=== PATIENT | female | born 1935 | race Caucasian/White ===

== ENCOUNTER 2023-07-18 18:07 | Inpatient (IN) | payer OTHER, MEDICAID ==
[~2023-07-18] VITALS: Ht 162.6 cm; Wt 44.0 kg
[2023-07-18 18:16] VITALS: BP 110/64; PULSE 117; RESP 16; TEMP 96.6; O2SAT 96
[2023-07-18] MEDS ORDERED: cefTRIAXone 1,000 MG in DEXT 5% MINI-BAG PLUS 50 ML IV ONE (18:35)
[2023-07-18] MEDS ORDERED: NACL 0.9% 1,500 ML IV SCH (18:35)
[2023-07-18 19:10] LABS: BASOPHILS # (AUTO) 0.1 K/uL (0.00-0.22); BASOPHILS % (AUTO) 0.6 % (0.0-2.0); EOSINOPHILS # (AUTO) 0.2 K/uL (0-0.4); EOSINOPHILS % (AUTO) 1.9 % (0.0-4.0); HEMATOCRIT 36.5 % (36-48); HEMOGLOBIN 12.1 g/dL (12.0-16.0); LYMPHOCYTES % (AUTO) 15.6 % (20.5-51.1); MEAN CORPUSCULAR HEMOGLOBIN 32 pg (27-31); MEAN CORPUSCULAR HGB CONC 33 g/dL (33-37); MEAN CORPUSCULAR VOLUME 94.8 fL (80-94); MONOCYTES % (AUTO) 8.1 % (1.7-9.3); NEUTROPHILS # (AUTO) 9.5 K/uL (1.8-7.7); NEUTROPHILS % (AUTO) 73.8 % (42.2-75.2); PLATELET COUNT (AUTO) 358 K/uL (140-450); RED BLOOD CELL COUNT(AUTO) 3.84 MIL/uL (4.20-5.40); WHITE BLOOD COUNT (AUTO) 12.8 K/uL (4.8-10.8)
[2023-07-18 19:26] LABS: ALANINE AMINOTRANSFERASE 22 U/L (12-78); ALBUMIN 2.7 g/dL (3.4-5.0); ALKALINE PHOSPHATASE 80 U/L (50-136); ANION GAP 8.7 (8-16); ASPARTATE AMINOTRANSFERASE 22 U/L (15-37); CALCIUM 10.3 mg/dL (8.5-10.1); CARBON DIOXIDE 28.4 mmol/L (21-32); CHLORIDE 102 mmol/L (98-107); CREATININE 0.7 mg/dL (0.6-1.3); GLUCOSE 129 mg/dL (74-106); POTASSIUM 4.1 mmol/L (3.5-5.1); SODIUM SERUM 135 mmol/L (136-145); TOTAL BILIRUBIN 0.3 mg/dL (0.0-1.0); TOTAL PROTEIN, SERUM 6.7 g/dL (6.4-8.2); UREA NITROGEN, BLOOD 32 mg/dL (7-18)
[2023-07-18 19:29] LABS: LACTIC ACID 1.2 mmol/L (0.4-2.0)
[2023-07-18] MEDS ORDERED: cefTRIAXone 1,000 MG VIAL ONE (19:39)
[2023-07-18 21:18] LABS: APPEARANCE,URINE CLEAR (CLEAR); BILIRUBIN,URINE NEGATIVE (NEGATIVE); BLOOD, URINE NEGATIVE (NEGATIVE); COLOR,URINE YELLOW (YELLOW); LEUKOCYTE ESTERASE ,URINE NEGATIVE (NEGATIVE); NITRITE, URINE POSITIVE (NEGATIVE); PROTEIN,URINE NEGATIVE (NEGATIVE); UGLUCOSE NEGATIVE (NEGATIVE); UROBILINOGEN,URINE 0.2 EU/dL (0.2 - 1)
[2023-07-18] MEDS ORDERED: DOCUSATE SODIUM 100 MG GELCAP PO PRN (21:20)
[2023-07-18] MEDS ORDERED: ONDANSETRON 4 MG/2 ML VIAL IM/IVP PRN (21:20)
[2023-07-18] MEDS ORDERED: HYDROcodone/APAP 7.5/325 MG 1 TAB PO PRN (21:20)
[2023-07-18] MEDS ORDERED: ZOLPIDEM 5 MG TAB PO PRN (21:20)
[2023-07-18] MEDS ORDERED: POTASSIUM CHLORIDE 10 MEQ TABER PO PRN (21:20)
[2023-07-18] MEDS ORDERED: guaiFENesin DM 200/20 MG-10 ML 10 ML UDC PO PRN (21:20)
[2023-07-18] MEDS ORDERED: ACETAMINOPHEN 325 MG TAB PO PRN (21:20)
[2023-07-18] MEDS: NACL 0.9% 1,000 ML IV SCH (21:29)
[2023-07-18 22:00] LABS: FLU A ANTIGEN negative (NEGATIVE); FLU B ANTIGEN NEGATIVE (NEGATIVE)
[2023-07-18] MEDS ORDERED: BISA-213 RC (22:28)
[2023-07-18] MEDS ORDERED: SENN-72 PO (22:28)
[2023-07-18] MEDS ORDERED: ALBU3SOL83 IH (22:28)
[2023-07-18] MEDS ORDERED: ASPI-1205 PO (22:28)
[2023-07-18] MEDS ORDERED: TIM.5OS OP (22:28)
[2023-07-18] MEDS ORDERED: ATOR20TA PO (22:28)
[2023-07-18] MEDS ORDERED: MIRABULK PO (22:28)
[2023-07-18] MEDS ORDERED: ACET-10509 PO (22:28)
[2023-07-18] MEDS ORDERED: NA P133N1 RC (22:28)
[2023-07-18] MEDS ORDERED: FLO44 INH (22:28)
[2023-07-18 22:34] VITALS: BP 97/54; PULSE 120; PULSE 99; RESP 18; TEMP 98.1; O2SAT 97
[2023-07-19] VITALS (7 sets, daily range): BP systolic 92–105; BP diastolic 50–56; PULSE 65–92; RESP 16–20; TEMP 97.1–97.6; O2SAT 96–99
[2023-07-19 06:10] LABS: BASOPHILS # (AUTO) 0.1 K/uL (0.00-0.22); BASOPHILS % (AUTO) 0.7 % (0.0-2.0); EOSINOPHILS # (AUTO) 0.4 K/uL (0-0.4); EOSINOPHILS % (AUTO) 3.7 % (0.0-4.0); HEMATOCRIT 30.7 % (36-48); HEMOGLOBIN 10.4 g/dL (12.0-16.0); LYMPHOCYTES # (AUTO) 2.3 K/uL (2.5-16.5); LYMPHOCYTES % (AUTO) 24.1 % (20.5-51.1); MEAN CORPUSCULAR HEMOGLOBIN 32 pg (27-31); MEAN CORPUSCULAR HGB CONC 34 g/dL (33-37); MONOCYTES # (AUTO) 0.7 K/uL (0.8-1.0); MONOCYTES % (AUTO) 6.9 % (1.7-9.3); NEUTROPHILS # (AUTO) 6.3 K/uL (1.8-7.7); NEUTROPHILS % (AUTO) 64.6 % (42.2-75.2); PLATELET COUNT (AUTO) 305 K/uL (140-450); RED BLOOD CELL COUNT(AUTO) 3.23 MIL/uL (4.20-5.40); RED CELL DISTRIBUTION WIDTH 14.4 % (11.6-13.7); WHITE BLOOD COUNT (AUTO) 9.7 K/uL (4.8-10.8)
[2023-07-19 06:21] LABS: ALANINE AMINOTRANSFERASE 17 U/L (12-78); ALBUMIN 2.3 g/dL (3.4-5.0); ALKALINE PHOSPHATASE 67 U/L (50-136); ANION GAP 6.3 (8-16); ASPARTATE AMINOTRANSFERASE 23 U/L (15-37); CALCIUM 9.3 mg/dL (8.5-10.1); CARBON DIOXIDE 28.5 mmol/L (21-32); CHLORIDE 108 mmol/L (98-107); CREATININE 0.5 mg/dL (0.6-1.3); GLUCOSE 96 mg/dL (74-106); POTASSIUM 3.8 mmol/L (3.5-5.1); SODIUM SERUM 139 mmol/L (136-145); TOTAL BILIRUBIN 0.3 mg/dL (0.0-1.0); TOTAL PROTEIN, SERUM 5.5 g/dL (6.4-8.2); UREA NITROGEN, BLOOD 20 mg/dL (7-18)
[2023-07-19] MEDS: PANTOPRAZOLE 40 MG TABEC PO SCH (08:53)
[2023-07-19] MEDS: NACL 0.9% 1,000 ML IV SCH (13:48)
[2023-07-20 04:00] VITALS: BP 101/46; PULSE 55; RESP 18; TEMP 97.4; O2SAT 94
[2023-07-20] MEDS: NACL 0.9% 1,000 ML IV SCH ×2 (06:40→15:34)
[2023-07-20 06:57] LABS: ALANINE AMINOTRANSFERASE 15 U/L (12-78); ALBUMIN 2.3 g/dL (3.4-5.0); ALKALINE PHOSPHATASE 81 U/L (50-136); ANION GAP 11.6 (8-16); ASPARTATE AMINOTRANSFERASE 19 U/L (15-37); CALCIUM 9.4 mg/dL (8.5-10.1); CARBON DIOXIDE 23.7 mmol/L (21-32); CHLORIDE 108 mmol/L (98-107); CREATININE 0.6 mg/dL (0.6-1.3); GLUCOSE 77 mg/dL (74-106); POTASSIUM 3.3 mmol/L (3.5-5.1); SODIUM SERUM 140 mmol/L (136-145); TOTAL BILIRUBIN 0.4 mg/dL (0.0-1.0); TOTAL PROTEIN, SERUM 5.6 g/dL (6.4-8.2); UREA NITROGEN, BLOOD 11 mg/dL (7-18)
[2023-07-20 07:23] LABS: BASOPHILS # (AUTO) 0.1 K/uL (0.00-0.22); BASOPHILS % (AUTO) 0.5 % (0.0-2.0); EOSINOPHILS # (AUTO) 0.3 K/uL (0-0.4); EOSINOPHILS % (AUTO) 2.2 % (0.0-4.0); HEMATOCRIT 29.8 % (36-48); HEMOGLOBIN 9.9 g/dL (12.0-16.0); LYMPHOCYTES # (AUTO) 1.3 K/uL (2.5-16.5); LYMPHOCYTES % (AUTO) 10.7 % (20.5-51.1); MEAN CORPUSCULAR HEMOGLOBIN 32 pg (27-31); MEAN CORPUSCULAR HGB CONC 33 g/dL (33-37); MEAN CORPUSCULAR VOLUME 95.7 fL (80-94); MONOCYTES # (AUTO) 0.5 K/uL (0.8-1.0); MONOCYTES % (AUTO) 4.5 % (1.7-9.3); NEUTROPHILS # (AUTO) 9.9 K/uL (1.8-7.7); NEUTROPHILS % (AUTO) 82.1 % (42.2-75.2); PLATELET COUNT (AUTO) 274 K/uL (140-450); RED BLOOD CELL COUNT(AUTO) 3.11 MIL/uL (4.20-5.40); RED CELL DISTRIBUTION WIDTH 14.1 % (11.6-13.7)
[2023-07-20 08:00] VITALS: PULSE 93; RESP 18; O2SAT 97
[2023-07-20] MEDS: PANTOPRAZOLE 40 MG TABEC PO SCH (09:58)
[2023-07-20] MEDS ORDERED: LORazepam 2 MG/ML VIAL IVP PRN (10:15)
[2023-07-20] MEDS ORDERED: FOAM DRESSING TP PRN (11:15)
[2023-07-20] MEDS ORDERED: Z-GUARD PASTE TP PRN (11:15)
[2023-07-20] MEDS: FOAM DRESSING TP SCH (13:00)
[2023-07-20] MEDS: Z-GUARD PASTE TP SCH (13:00)
[2023-07-20 20:00] VITALS: BP 101/58; PULSE 93; RESP 18; TEMP 98.7; O2SAT 94
[2023-07-21] MEDS: Z-GUARD PASTE TP SCH ×2 (01:46→12:30)
[2023-07-21 04:00] VITALS: BP 97/47; PULSE 76; RESP 16; TEMP 97.1; O2SAT 99
[2023-07-21 06:36] LABS: BASOPHILS # (AUTO) 0.1 K/uL (0.00-0.22); BASOPHILS % (AUTO) 0.8 % (0.0-2.0); EOSINOPHILS # (AUTO) 0.1 K/uL (0-0.4); EOSINOPHILS % (AUTO) 1.9 % (0.0-4.0); HEMATOCRIT 26.5 % (36-48); LYMPHOCYTES # (AUTO) 1.6 K/uL (2.5-16.5); MEAN CORPUSCULAR HEMOGLOBIN 33 pg (27-31); MEAN CORPUSCULAR HGB CONC 34 g/dL (33-37); MEAN CORPUSCULAR VOLUME 95.4 fL (80-94); MONOCYTES # (AUTO) 0.5 K/uL (0.8-1.0); NEUTROPHILS # (AUTO) 4.9 K/uL (1.8-7.7); NEUTROPHILS % (AUTO) 68.3 % (42.2-75.2); PLATELET COUNT (AUTO) 263 K/uL (140-450); RED BLOOD CELL COUNT(AUTO) 2.78 MIL/uL (4.20-5.40); RED CELL DISTRIBUTION WIDTH 14.6 % (11.6-13.7); WHITE BLOOD COUNT (AUTO) 7.1 K/uL (4.8-10.8)
[2023-07-21 06:56] LABS: ALANINE AMINOTRANSFERASE 13 U/L (12-78); ALBUMIN 2.1 g/dL (3.4-5.0); ALKALINE PHOSPHATASE 77 U/L (50-136); ASPARTATE AMINOTRANSFERASE 17 U/L (15-37); CALCIUM 9.4 mg/dL (8.5-10.1); CARBON DIOXIDE 25.5 mmol/L (21-32); CHLORIDE 109 mmol/L (98-107); CREATININE 0.5 mg/dL (0.6-1.3); GLUCOSE 92 mg/dL (74-106); POTASSIUM 3.5 mmol/L (3.5-5.1); SODIUM SERUM 141 mmol/L (136-145); TOTAL BILIRUBIN 0.2 mg/dL (0.0-1.0); TOTAL PROTEIN, SERUM 5.3 g/dL (6.4-8.2); UREA NITROGEN, BLOOD 11 mg/dL (7-18)
[2023-07-21 08:01] VITALS: PULSE 92
[2023-07-21] MEDS: PANTOPRAZOLE 40 MG TABEC PO SCH (08:29)
[2023-07-21 08:52] VITALS: BP 113/64; PULSE 98; RESP 20; TEMP 96.6; O2SAT 97
[2023-07-21 08:53] VITALS: PULSE 98; RESP 20; O2SAT 94
[2023-07-21] MEDS: NACL 0.9% 1,000 ML IV SCH (10:49)
[2023-07-21] MEDS: FOAM DRESSING TP SCH (12:30)
[2023-07-21] MEDS ORDERED: AMOX-999 PO (14:34)
== END 2023-07-21 15:18 | DRG 640 ==
LOC: MED 18:07 → MTU 21:19
PROVIDERS: ADMIT Student in an Organized Health Care Education/Training Program; ATTEND Student in an Organized Health Care Education/Training Program
DX: E86.0 Dehydration (principal); E43 Unspecified severe protein-calorie malnutrition; G82.50 Quadriplegia, unspecified; N39.0 Urinary tract infection, site not specified; R65.10 Systemic inflammatory response syndrome (SIRS) of non-infectious origin without acute organ dysfunction; Z68.1 Body mass index [BMI] 19.9 or less, adult; I10 Essential (primary) hypertension; J45.909 Unspecified asthma, uncomplicated; Z66 Do not resuscitate; Z20.822 Contact with and (suspected) exposure to COVID-19; Z91.018 Allergy to other foods; Z91.09 Other allergy status, other than to drugs and biological substances; Z79.82 Long term (current) use of aspirin; Z79.1 Long term (current) use of non-steroidal anti-inflammatories (NSAID); Z79.899 Other long term (current) drug therapy
CPT/HCPCS: 36415; 71045; 80053; 81003; 83605; 83880; 84484; 85025; 87040; 87081; 87086; 92526; 93005; 96365; 99285; J0696; J7060

== ENCOUNTER 2024-08-08 19:06 | Inpatient (IN) | payer OTHER, MEDICAID ==
[~2024-08-08] VITALS: Ht 157.5 cm; Wt 45.0 kg
[~2024-08-08 19:06] MED LIST: ACET500T99 PO; ALBU3SOL83 IH; AMOX-999 PO; ASPI-1205 PO; ATOR20TA PO; BISA-213 RC; FLUT10.62 INH; MIRABULK PO; NA P133N1 RC; SENN-72 PO; TIM.5OS OP
[2024-08-08 19:20] VITALS: O2SAT 94
[2024-08-08 19:36] VITALS: BP 99/48; PULSE 85; RESP 21; TEMP 98.1; O2SAT 96
[2024-08-08 20:17] LABS: BASOPHILS % (AUTO) 0.4 % (0.0-2.0); EOSINOPHILS # (AUTO) 0.5 K/uL (0-0.4); EOSINOPHILS % (AUTO) 6.3 % (0.0-4.0); HEMATOCRIT 30.9 % (36-48); HEMOGLOBIN 10.3 g/dL (12.0-16.0); LYMPHOCYTES % (AUTO) 26.1 % (20.5-51.1); MEAN CORPUSCULAR HEMOGLOBIN 31 pg (27-31); MEAN CORPUSCULAR HGB CONC 33 g/dL (33-37); MEAN CORPUSCULAR VOLUME 92.5 fL (80-94); MONOCYTES # (AUTO) 0.6 K/uL (0.8-1.0); MONOCYTES % (AUTO) 7.7 % (1.7-9.3); NEUTROPHILS # (AUTO) 4.6 K/uL (1.8-7.7); NEUTROPHILS % (AUTO) 59.5 % (42.2-75.2); PLATELET COUNT (AUTO) 297 K/uL (140-450); RED BLOOD CELL COUNT(AUTO) 3.34 MIL/uL (4.20-5.40); RED CELL DISTRIBUTION WIDTH 14.7 % (11.6-13.7); WHITE BLOOD COUNT (AUTO) 7.8 K/uL (4.8-10.8)
[2024-08-08 20:34] LABS: ANION GAP 6.6 (8-16); CARBON DIOXIDE 30.1 mmol/L (21-32); CHLORIDE 101 mmol/L (98-107); CREATININE 0.7 mg/dL (0.6-1.3); GLUCOSE 92 mg/dL (74-106); POTASSIUM 3.7 mmol/L (3.5-5.1); SODIUM SERUM 134 mmol/L (136-145); UREA NITROGEN, BLOOD 17 mg/dL (7-18)
[2024-08-08 20:37] LABS: ALANINE AMINOTRANSFERASE 16 U/L (12-78); ALKALINE PHOSPHATASE 83 U/L (50-136); ASPARTATE AMINOTRANSFERASE 19 U/L (15-37); BILIRUBIN,DIRECT 0.1 mg/dL (0.0-0.3); TOTAL BILIRUBIN 0.3 mg/dL (0.0-1.0); TOTAL PROTEIN, SERUM 6.8 g/dL (6.4-8.2)
[2024-08-08 21:10] LABS: INR 0.99 (0.8-1.2); PROTHROMBIN TIME 10.4 secs (10.8-13.4)
[2024-08-08 21:12] LABS: BILIRUBIN,URINE NEGATIVE (NEGATIVE); BLOOD, URINE 2+ (NEGATIVE); COLOR,URINE YELLOW (YELLOW); LEUKOCYTE ESTERASE ,URINE 3+ (NEGATIVE); NITRITE, URINE NEGATIVE (NEGATIVE); PROTEIN,URINE 1+ (NEGATIVE); UGLUCOSE NEGATIVE (NEGATIVE); UROBILINOGEN,URINE 0.2 EU/dL (0.2 - 1)
[2024-08-08 21:16] LABS: APPEARANCE,URINE HAZY (CLEAR)
[2024-08-08 21:25] LABS: WBC,URINE >25 (MANY) /HPF (0-5)
[2024-08-08 21:26] LABS: BACTERIA,URINE 4+ /HPF (None Seen); MUCUS,URINE 3+ /LPF (None Seen)
[2024-08-08] MEDS ORDERED: cefTRIAXone 1,000 MG VIAL ONE (21:34)
[2024-08-08] MEDS: NACL 0.9% 1,500 ML IV ONE (21:37)
[2024-08-08 22:08] LABS: LACTIC ACID 0.5 mmol/L (0.4-2.0)
[2024-08-08] MEDS ORDERED: BISA-213 RC (23:31)
[2024-08-08] MEDS ORDERED: ASPI-1822 PO (23:31)
[2024-08-08] MEDS ORDERED: ASCO500T95 PO (23:31)
[2024-08-08] MEDS ORDERED: TRAM50TA3 PO (23:31)
[2024-08-08] MEDS ORDERED: ATRN INH (23:31)
[2024-08-08] MEDS ORDERED: SENN-72 PO (23:31)
[2024-08-08] MEDS ORDERED: FLUT1DSK IH (23:31)
[2024-08-08] MEDS ORDERED: ACET-2619 PO (23:31)
[2024-08-08] MEDS ORDERED: MIRT-121 PO (23:31)
[2024-08-09] VITALS (9 sets, daily range): BP systolic 103–114; BP diastolic 50–73; PULSE 51–99; RESP 14–20; TEMP 97.1–98.5; O2SAT 94–100
[2024-08-09] MEDS: NACL 0.9% 1,000 ML IV ONE (00:58)
[2024-08-09] MEDS ORDERED: SENNA 8.6 MG TAB PO PRN (16:20)
[2024-08-09] MEDS ORDERED: ACETAMINOPHEN EXTRA STRENGTH 500 MG TAB PO PRN (16:20)
[2024-08-09] MEDS ORDERED: SODIUM PHOSPHATE 118 ML ENEM RC SCH (16:20)
[2024-08-09] MEDS: ALBUTEROL 0.083% 2.5 MG/3 ML NEBU INH SCH (18:00)
[2024-08-09] MEDS: BUDESONIDE 0.5 MG/2 ML NEBU INH SCH (19:30)
[2024-08-09] MEDS ORDERED: FLUTICASONE IH SCH (21:00)
[2024-08-09] MEDS: TIMOLOL OP 0.5% 5 ML BTL OP SCH (21:00)
[2024-08-09] MEDS ORDERED: SALMETEROL IH SCH (21:00)
[2024-08-09] MEDS: MIRTAZAPINE 15 MG TAB PO SCH (21:33)
[2024-08-10] VITALS (11 sets, daily range): BP systolic 116–139; BP diastolic 56–78; PULSE 71–90; RESP 16–18; TEMP 97–98.1; O2SAT 93–99
[2024-08-10] MEDS: ALBUTEROL 0.083% 2.5 MG/3 ML NEBU INH SCH (07:42)
[2024-08-10] MEDS: ATORVASTATIN 20 MG TAB PO SCH (08:47)
[2024-08-10] MEDS: ASCORBIC ACID 500 MG TAB PO SCH (08:47)
[2024-08-10] MEDS: ASPIRIN 81 MG TAB.CHEW PO SCH (08:49)
[2024-08-10] MEDS: POLYETHYLENE GLYCOL 17 GM/PKT PO SCH (08:49)
[2024-08-10] MEDS: TIMOLOL OP 0.5% 5 ML BTL BOTH EYES SCH (11:16)
[2024-08-10 13:01] LABS: BASOPHILS # (AUTO) 0.1 K/uL (0.00-0.22); BASOPHILS % (AUTO) 0.9 % (0.0-2.0); EOSINOPHILS # (AUTO) 0.2 K/uL (0-0.4); EOSINOPHILS % (AUTO) 2.6 % (0.0-4.0); HEMATOCRIT 29.4 % (36-48); LYMPHOCYTES # (AUTO) 1.5 K/uL (2.5-16.5); LYMPHOCYTES % (AUTO) 18.7 % (20.5-51.1); MEAN CORPUSCULAR HEMOGLOBIN 31 pg (27-31); MEAN CORPUSCULAR HGB CONC 34 g/dL (33-37); MEAN CORPUSCULAR VOLUME 91.7 fL (80-94); MONOCYTES # (AUTO) 0.5 K/uL (0.8-1.0); MONOCYTES % (AUTO) 6.8 % (1.7-9.3); NEUTROPHILS # (AUTO) 5.5 K/uL (1.8-7.7); PLATELET COUNT (AUTO) 342 K/uL (140-450); RED BLOOD CELL COUNT(AUTO) 3.21 MIL/uL (4.20-5.40); RED CELL DISTRIBUTION WIDTH 14.4 % (11.6-13.7); WHITE BLOOD COUNT (AUTO) 7.8 K/uL (4.8-10.8)
[2024-08-10 13:23] LABS: ALANINE AMINOTRANSFERASE 18 U/L (12-78); ALBUMIN 1.9 g/dL (3.4-5.0); ALKALINE PHOSPHATASE 83 U/L (50-136); ASPARTATE AMINOTRANSFERASE 17 U/L (15-37); CALCIUM 9.3 mg/dL (8.5-10.1); CARBON DIOXIDE 28.4 mmol/L (21-32); CHLORIDE 105 mmol/L (98-107); CREATININE 0.7 mg/dL (0.6-1.3); GLUCOSE 85 mg/dL (74-106); POTASSIUM 3.4 mmol/L (3.5-5.1); SODIUM SERUM 136 mmol/L (136-145); TOTAL BILIRUBIN 0.2 mg/dL (0.0-1.0); TOTAL PROTEIN, SERUM 6.4 g/dL (6.4-8.2); UREA NITROGEN, BLOOD 10 mg/dL (7-18)
[2024-08-10] MEDS: POTASSIUM CHLORIDE 20% 40 MEQ/15 ML UDC PO ONE (17:21)
[2024-08-11] VITALS (12 sets, daily range): BP systolic 104–131; BP diastolic 41–82; PULSE 81–93; RESP 16–18; TEMP 97–97.8; O2SAT 94–98
[2024-08-11 05:26] LABS: BASOPHILS # (AUTO) 0.1 K/uL (0.00-0.22); BASOPHILS % (AUTO) 0.9 % (0.0-2.0); EOSINOPHILS # (AUTO) 0.3 K/uL (0-0.4); EOSINOPHILS % (AUTO) 5.4 % (0.0-4.0); HEMATOCRIT 29.5 % (36-48); HEMOGLOBIN 9.9 g/dL (12.0-16.0); LYMPHOCYTES # (AUTO) 1.7 K/uL (2.5-16.5); LYMPHOCYTES % (AUTO) 26.8 % (20.5-51.1); MEAN CORPUSCULAR HEMOGLOBIN 31 pg (27-31); MEAN CORPUSCULAR HGB CONC 34 g/dL (33-37); MONOCYTES # (AUTO) 0.5 K/uL (0.8-1.0); MONOCYTES % (AUTO) 7.4 % (1.7-9.3); NEUTROPHILS # (AUTO) 3.8 K/uL (1.8-7.7); NEUTROPHILS % (AUTO) 59.5 % (42.2-75.2); PLATELET COUNT (AUTO) 369 K/uL (140-450); RED BLOOD CELL COUNT(AUTO) 3.24 MIL/uL (4.20-5.40); RED CELL DISTRIBUTION WIDTH 14.4 % (11.6-13.7); WHITE BLOOD COUNT (AUTO) 6.3 K/uL (4.8-10.8)
[2024-08-11 06:49] LABS: ANION GAP 11.6 (8-16); CALCIUM 9.8 mg/dL (8.5-10.1); CARBON DIOXIDE 23.8 mmol/L (21-32); CHLORIDE 105 mmol/L (98-107); CREATININE 0.6 mg/dL (0.6-1.3); GLUCOSE 91 mg/dL (74-106); POTASSIUM 3.4 mmol/L (3.5-5.1); SODIUM SERUM 137 mmol/L (136-145); UREA NITROGEN, BLOOD 8 mg/dL (7-18)
[2024-08-11 06:55] LABS: MAGNESIUM 1.6 mg/dL (1.8-2.4)
[2024-08-11] MEDS: ALBUTEROL SULFATE/IPRATROPIU 3 ML SOL IH SCH (19:04)
[2024-08-12] VITALS (10 sets, daily range): BP systolic 111–129; BP diastolic 46–70; PULSE 80–100; RESP 16–19; TEMP 97.2–98.9; O2SAT 94–100
[2024-08-12] MEDS: ALBUTEROL 0.083% 2.5 MG/3 ML NEBU INH SCH ×2 (01:00→08:04)
[2024-08-12 05:41] LABS: BASOPHILS # (AUTO) 0.1 K/uL (0.00-0.22); BASOPHILS % (AUTO) 1.1 % (0.0-2.0); EOSINOPHILS # (AUTO) 0.3 K/uL (0-0.4); EOSINOPHILS % (AUTO) 3.7 % (0.0-4.0); HEMATOCRIT 33.6 % (36-48); HEMOGLOBIN 11.2 g/dL (12.0-16.0); LYMPHOCYTES # (AUTO) 1.5 K/uL (2.5-16.5); LYMPHOCYTES % (AUTO) 17.3 % (20.5-51.1); MEAN CORPUSCULAR HEMOGLOBIN 31 pg (27-31); MEAN CORPUSCULAR HGB CONC 33 g/dL (33-37); MEAN CORPUSCULAR VOLUME 92.3 fL (80-94); MONOCYTES # (AUTO) 0.5 K/uL (0.8-1.0); MONOCYTES % (AUTO) 5.9 % (1.7-9.3); NEUTROPHILS # (AUTO) 6.4 K/uL (1.8-7.7); PLATELET COUNT (AUTO) 352 K/uL (140-450); RED BLOOD CELL COUNT(AUTO) 3.64 MIL/uL (4.20-5.40); RED CELL DISTRIBUTION WIDTH 14.3 % (11.6-13.7); WHITE BLOOD COUNT (AUTO) 8.9 K/uL (4.8-10.8)
[2024-08-12 05:44] LABS: CALCIUM 9.9 mg/dL (8.5-10.1); CARBON DIOXIDE 25.5 mmol/L (21-32); CHLORIDE 104 mmol/L (98-107); CREATININE 0.6 mg/dL (0.6-1.3); GLUCOSE 60 mg/dL (74-106); POTASSIUM 3.5 mmol/L (3.5-5.1); SODIUM SERUM 138 mmol/L (136-145); UREA NITROGEN, BLOOD 9 mg/dL (7-18)
[2024-08-12 06:30] LABS: MAGNESIUM 1.6 mg/dL (1.8-2.4); PHOSPHORUS 2.5 mg/dL (2.5-4.9)
[2024-08-12] MEDS: DEXTROSE 50% 50 ML SYR IVP SCH (07:02)
[2024-08-12] MEDS: DEXT 5% / NACL 0.9% 1,000 ML IV ONE (07:24)
[2024-08-12] MEDS ORDERED: ROC2I IV (14:25)
[2024-08-12] MEDS: MAG SULF 2000 MG/WATER PREMIX 50 ML IV SCH (16:20)
[2024-08-13 01:23] VITALS: O2SAT 98
[2024-08-13 04:00] VITALS: BP_SYST 134; BP_SYST 144; BP_DIAS 83; BP_DIAS 86; PULSE 100; PULSE 85; RESP 18; TEMP 97.8; O2SAT 100; O2SAT 96
[2024-08-13 05:12] VITALS: PULSE 96; RESP 16; O2SAT 98
[2024-08-13 05:25] LABS: BASOPHILS # (AUTO) 0.1 K/uL (0.00-0.22); BASOPHILS % (AUTO) 0.9 % (0.0-2.0); EOSINOPHILS # (AUTO) 0.3 K/uL (0-0.4); EOSINOPHILS % (AUTO) 3.2 % (0.0-4.0); HEMATOCRIT 30.9 % (36-48); HEMOGLOBIN 10.4 g/dL (12.0-16.0); LYMPHOCYTES # (AUTO) 1.7 K/uL (2.5-16.5); LYMPHOCYTES % (AUTO) 19.6 % (20.5-51.1); MEAN CORPUSCULAR HEMOGLOBIN 31 pg (27-31); MEAN CORPUSCULAR HGB CONC 34 g/dL (33-37); MEAN CORPUSCULAR VOLUME 91.5 fL (80-94); MONOCYTES # (AUTO) 0.5 K/uL (0.8-1.0); MONOCYTES % (AUTO) 6.1 % (1.7-9.3); NEUTROPHILS % (AUTO) 70.2 % (42.2-75.2); PLATELET COUNT (AUTO) 447 K/uL (140-450); RED BLOOD CELL COUNT(AUTO) 3.37 MIL/uL (4.20-5.40); RED CELL DISTRIBUTION WIDTH 14.4 % (11.6-13.7); WHITE BLOOD COUNT (AUTO) 8.5 K/uL (4.8-10.8)
[2024-08-13 05:46] LABS: MAGNESIUM 2.1 mg/dL (1.8-2.4); PHOSPHORUS 2.1 mg/dL (2.5-4.9)
[2024-08-13 05:55] LABS: ANION GAP 5.6 (8-16); CALCIUM 9.6 mg/dL (8.5-10.1); CARBON DIOXIDE 28.3 mmol/L (21-32); CHLORIDE 105 mmol/L (98-107); CREATININE 0.6 mg/dL (0.6-1.3); GLUCOSE 108 mg/dL (74-106); UREA NITROGEN, BLOOD 8 mg/dL (7-18)
[2024-08-13 06:08] LABS: POTASSIUM 2.9 mmol/L (3.5-5.1)
[2024-08-13 06:09] LABS: SODIUM SERUM 136 mmol/L (136-145)
[2024-08-13] MEDS ORDERED: SODIUM PHOSPHATE 118 ML ENEM RC PRN (07:03)
[2024-08-13] MEDS ORDERED: ALBUTEROL SULFATE/IPRATROPIU 3 ML SOL IH PRN (07:03)
[2024-08-13] MEDS: ALBUTEROL 0.083% 2.5 MG/3 ML NEBU INH SCH (07:19)
[2024-08-13 07:28] VITALS: PULSE 84; RESP 22; O2SAT 99
[2024-08-13 07:44] VITALS: PULSE 85; RESP 21; O2SAT 100
[2024-08-13 08:00] VITALS: PULSE 65
[2024-08-13] MEDS: POTASSIUM CHLORIDE 40 MEQ, LIDOCAINE 1% 25 MG in NACL 0.9% 250 ML IV SCH (09:32)
== END 2024-08-13 11:20 | DRG 871 ==
LOC: MED 19:06 → MTU 08-09 00:28
DX: A41.9 Sepsis, unspecified organism (principal); E43 Unspecified severe protein-calorie malnutrition; E87.1 Hypo-osmolality and hyponatremia; Z68.1 Body mass index [BMI] 19.9 or less, adult; N39.0 Urinary tract infection, site not specified; R62.7 Adult failure to thrive; R13.10 Dysphagia, unspecified; D63.8 Anemia in other chronic diseases classified elsewhere; I25.10 Atherosclerotic heart disease of native coronary artery without angina pectoris; E78.5 Hyperlipidemia, unspecified; F32.9 Major depressive disorder, single episode, unspecified; N28.1 Cyst of kidney, acquired; Z79.899 Other long term (current) drug therapy; Z88.8 Allergy status to other drugs, medicaments and biological substances; Z91.018 Allergy to other foods
CPT/HCPCS: 36415; 71045; 76770; 80048; 80053; 80076; 81001; 82948; 83605; 83735; 84100; 84484; 85025; 85610; 87040; 87081; 87086; 87186; 92526; 93005; 94640; 96361; 96365; 99285; J0696; J2003; J3475; J3480; J7030; J7060; J7613; J7626; Q0092